=== PATIENT | male | born 1960 | race African-American/Black ===

== ENCOUNTER 2018-12-16 00:41 | Inpatient (IN) | payer MEDICAID ==
[~2018-12-16] VITALS: Ht 185.4 cm; Wt 75.7 kg
[2018-12-16] VITALS (68 sets, daily range): BP systolic 113–166; BP diastolic 61–122
[2018-12-16] MEDS ORDERED: ONDANSETRON HCL 4MG/2ML INJ IV STA (01:04)
[2018-12-16] MEDS ORDERED: SODIUM CHLORIDE 0.9% 1,000 ML IV ONE (01:04)
[2018-12-16] MEDS ORDERED: LORAZEPAM 2MG/ML CPJ IV STA (01:04)
[2018-12-16] MEDS ORDERED: LEVETIRACETAM 500MG PREMIX 100 ML IV ONE (01:15)
[2018-12-16 01:44] LABS: BG BASE EXCESS 0.7 mmol/L (-2.0-2.0); BG CARBOXYHEMOGLOBIN 5.2 % (0.5-1.5); BG DEOXYHEMOGLOBIN 1.2 % (0.0-5.0); BG FRACTION INSPIRED OXYGEN 100; BG HCO3 ACT 31.2 mmol/L (22.0-26.0); BG METHEMOGLOBIN 0.3 % (0.0-1.5); BG OXYGEN SATURATION 98.7 % (92.0-98.5); BG OXYHEMOGLOBIN 93.3 % (94.0-97.0); BG PCO2 82.9 mmHg (35.0-45.0); BG PH 7.193 (7.350-7.450); BG PO2 199.8 mmHg (75.0-100.0); BG SAMPLE SITE RIGHT RADIAL; BG TOTAL HEMOGLOBIN 13.2 g/dL (12.0-18.0); BG VENT MODE MASK - NRB
[2018-12-16] MEDS ORDERED: SUCCINYLCHOLINE CHLORIDE 200MG/10ML IV ONE ×2 (02:00→02:04)
[2018-12-16] MEDS ORDERED: PROPOFOL 10MG/ML 100ML 100 ML IV ONE ×2 (02:00→04:45)
[2018-12-16] MEDS ORDERED: MIDAZOLAM HCL 2 MG/2 ML VIAL IV ONE (02:00)
[2018-12-16 02:03] LABS: BASOPHILS % 0.5 % (0.0-2.0); HEMATOCRIT. 36.6 % (42.0-52.0); HEMOGLOBIN. 12.2 g/dL (14.0-18.0); LYMPHOCYTES % 31.1 % (20.0-50.0); MEAN CORPUSCULAR HEMOGLOBIN 28.3 pg (28.0-32.0); MEAN PLATELET VOLUME 7.6 fl (7.4-10.4); NEUTROPHILS % 58.4 % (40.0-76.0); PLATELET 265 x1000/uL (130-400); RED BLOOD CELL COUNT 4.31 mill/uL (4.7-6.1); RED CELL DISTRIBUTION WIDTH 15.5 % (11.6-14.6)
[2018-12-16 02:06] LABS: CHLORIDE 110 mEq/L (98-107)
[2018-12-16 02:10] LABS: ETHANOL BLOOD < 10 mg/dL
[2018-12-16 02:15] LABS: CREATINE KINASE 165 IU/L (39-308)
[2018-12-16 02:51] LABS: CLARITY URINE CLEAR (CLEAR); COLOR URINE YELLOW (YELLOW); KETONES URINE TRACE (NEGATIVE); LEUKOCYTE ESTERASE URINE NEGATIVE (NEGATIVE); NITRITE URINE NEGATIVE (NEGATIVE); OCCULT BLOOD URINE NEGATIVE (NEGATIVE); PROTEIN URINE 1+ (NEGATIVE); SPECIFIC GRAVITY URINE 1.027 (1.005-1.030); UROBILINOGEN URINE 0.2 E.U./dL (0.2-1.0)
[2018-12-16 03:03] LABS: *AMPHETAMINES SCREEN URINE PRESUMTIVE POSITIVE (NEGATIVE)
[2018-12-16 03:04] LABS: *BARBITURATES SCREEN URINE NEGATIVE (NEGATIVE); *BENZODIAZEPINES SCREEN URINE PRESUMTIVE POSITIVE (NEGATIVE); *COCAINE SCREEN URINE PRESUMTIVE POSITIVE (NEGATIVE); METHADONE URINE SCREEN NEGATIVE (NEGATIVE); OPIATES URINE SCREEN NEGATIVE (NEGATIVE); PHENCYCLIDINE URINE SCREEN PRESUMTIVE POSITIVE (NEGATIVE)
[2018-12-16 03:05] LABS: CANNABINOID URINE SCREEN PRESUMTIVE POSITIVE (NEGATIVE)
[2018-12-16 09:18] LABS: BG BASE EXCESS 1.7 mmol/L (-2.0-2.0); BG CARBOXYHEMOGLOBIN 1.6 % (0.5-1.5); BG DEOXYHEMOGLOBIN 0.8 % (0.0-5.0); BG HCO3 ACT 27.5 mmol/L (22.0-26.0); BG METHEMOGLOBIN 0.2 % (0.0-1.5); BG OXYGEN SATURATION 99.2 % (92.0-98.5); BG OXYHEMOGLOBIN 97.4 % (94.0-97.0); BG PCO2 48.4 mmHg (35.0-45.0); BG PH 7.373 (7.350-7.450); BG PO2 185.4 mmHg (75.0-100.0); BG SAMPLE SITE RIGHT BRACHIAL; BG TIDAL VOLUME(mL) 500 mL; BG VENT MODE VENT - A/C; BG VENT RATE 18 set
[2018-12-16] MEDS ORDERED: ONDANSETRON HCL 4MG/2ML INJ IV PRN (09:30)
[2018-12-16] MEDS: DEXT 5%/0.45% NACL 1000ML 1,000 ML IV SCH (09:43)
[2018-12-16] MEDS: ENOXAPARIN 40MG/0.4ML SYR SUBCUT SCH (09:44)
[2018-12-16] MEDS ORDERED: IPRATROPIUM/ALBUTEROL 0.5-3(2.5)MG/3ML NEB HHN PRN (10:00)
[2018-12-16] MEDS ORDERED: OMEPRAZOLE 20MG CAPSULE EXTENDED RELEASE PO SCH (10:00)
[2018-12-16] MEDS: PROPOFOL 10MG/ML 100ML 100 ML IV PRN ×5 (10:36→23:27)
[2018-12-16] MEDS: LANSOPRAZOLE 30MG DR CAPSULE GT SCH (10:36)
[2018-12-16] MEDS: CEFTRIAXONE 1 G PREMIX 50 ML IV SCH (11:02)
[2018-12-16] MEDS: OXYMETAZOLINE HCL NASAL SPRAY 15ML BOTHNSTRLS SCH ×2 (11:02→21:29)
[2018-12-16] MEDS ORDERED: DILTIAZEM HCL 5MG/ML 5ML VIAL IV SCH (12:00)
[2018-12-16] MEDS: LEVETIRACETAM 500 MG in SODIUM CHLORIDE 0.9% 100 ML IV SCH ×2 (12:20→21:29)
[2018-12-16] MEDS: IPRATROPIUM/ALBUTEROL 0.5-3(2.5)MG/3ML NEB HHN SCH ×2 (14:08→20:55)
[2018-12-16] MEDS: DILTIAZEM HCL 30MG TABLET GT PRN (15:10)
[2018-12-16] MEDS: METOPROLOL TARTRATE 50MG TABLET GT SCH ×2 (17:42→21:29)
[2018-12-17] VITALS (85 sets, daily range): BP systolic 102–155; BP diastolic 32–124
[2018-12-17] MEDS: DEXT 5%/0.45% NACL 1000ML 1,000 ML IV SCH ×2 (00:56→11:40)
[2018-12-17] MEDS: IPRATROPIUM/ALBUTEROL 0.5-3(2.5)MG/3ML NEB HHN SCH ×4 (02:03→20:06)
[2018-12-17] MEDS: PROPOFOL 10MG/ML 100ML 100 ML IV PRN (03:10)
[2018-12-17 05:23] LABS: BASOPHILS % 0.3 % (0.0-2.0); EOSINOPHILS % 1.5 % (0.0-5.0); HEMATOCRIT. 44.7 % (42.0-52.0); HEMOGLOBIN. 14.6 g/dL (14.0-18.0); LYMPHOCYTES % 23.6 % (20.0-50.0); MEAN CORPUSCULAR HEMOGLOBIN 28.1 pg (28.0-32.0); MEAN CORPUSCULAR VOLUME 86.1 fL (80.0-94.0); MEAN PLATELET VOLUME 7.8 fl (7.4-10.4); MONOCYTES % 7.9 % (2.0-8.0); NEUTROPHILS % 66.7 % (40.0-76.0); PLATELET 269 x1000/uL (130-400); RED BLOOD CELL COUNT 5.19 mill/uL (4.7-6.1)
[2018-12-17 05:29] LABS: CHLORIDE 109 mEq/L (98-107)
[2018-12-17] MEDS: DILTIAZEM HCL 30MG TABLET GT PRN ×2 (06:02→14:45)
[2018-12-17] MEDS: LANSOPRAZOLE 30MG DR CAPSULE GT SCH (06:02)
[2018-12-17] MEDS: METOPROLOL TARTRATE 50MG TABLET GT SCH ×2 (08:18→21:21)
[2018-12-17] MEDS: LEVETIRACETAM 500 MG in SODIUM CHLORIDE 0.9% 100 ML IV SCH ×2 (08:18→21:21)
[2018-12-17] MEDS: OXYMETAZOLINE HCL NASAL SPRAY 15ML BOTHNSTRLS SCH (08:18)
[2018-12-17] MEDS: CEFTRIAXONE 1 G PREMIX 50 ML IV SCH (08:18)
[2018-12-17] MEDS: ENOXAPARIN 40MG/0.4ML SYR SUBCUT SCH (08:19)
[2018-12-17] MEDS ORDERED: PROPOFOL 10MG/ML 100ML 100 ML IV PRN (09:30)
[2018-12-17 11:38] LABS: CREATINE KINASE 114 IU/L (39-308)
[2018-12-17] MEDS ORDERED: DILTIAZEM HCL 5MG/ML 5ML VIAL IV PRN (14:30)
[2018-12-17] MEDS: DILTIAZEM HCL 5MG/ML 5ML VIAL IV PRN (18:12)
[2018-12-18] VITALS (41 sets, daily range): BP systolic 90–142; BP diastolic 49–129
[2018-12-18] MEDS: IPRATROPIUM/ALBUTEROL 0.5-3(2.5)MG/3ML NEB HHN SCH ×4 (01:55→20:44)
[2018-12-18] MEDS: DEXT 5%/0.45% NACL 1000ML 1,000 ML IV SCH ×2 (01:59→06:46)
[2018-12-18] MEDS: LANSOPRAZOLE 30MG DR CAPSULE GT SCH (05:57)
[2018-12-18] MEDS: LEVETIRACETAM 500 MG in SODIUM CHLORIDE 0.9% 100 ML IV SCH ×2 (09:49→21:19)
[2018-12-18] MEDS: CEFTRIAXONE 1 G PREMIX 50 ML IV SCH (09:49)
[2018-12-18] MEDS: METOPROLOL TARTRATE 50MG TABLET GT SCH ×2 (09:50→21:19)
[2018-12-18] MEDS: ENOXAPARIN 40MG/0.4ML SYR SUBCUT SCH (09:54)
[2018-12-18] MEDS: DILTIAZEM HCL 5MG/ML 5ML VIAL IV PRN (19:41)
[2018-12-19] VITALS (20 sets, daily range): BP systolic 112–154; BP diastolic 62–92
[2018-12-19] MEDS: IPRATROPIUM/ALBUTEROL 0.5-3(2.5)MG/3ML NEB HHN SCH (02:21)
[2018-12-19] MEDS: LANSOPRAZOLE 30MG DR CAPSULE GT SCH (06:44)
[2018-12-19] MEDS: METOPROLOL TARTRATE 50MG TABLET GT SCH ×2 (08:24→21:26)
[2018-12-19] MEDS: ENOXAPARIN 40MG/0.4ML SYR SUBCUT SCH (08:24)
[2018-12-19] MEDS: LEVETIRACETAM 500 MG in SODIUM CHLORIDE 0.9% 100 ML IV SCH ×2 (08:26→21:52)
[2018-12-19] MEDS: CEFTRIAXONE 1 G PREMIX 50 ML IV SCH (08:26)
[2018-12-19] MEDS: ENOXAPARIN 80MG/0.8ML SYR SUBCUT SCH ×2 (09:00→21:26)
[2018-12-19] MEDS: DILTIAZEM HCL 5MG/ML 5ML VIAL IV PRN (09:04)
[2018-12-19] MEDS: DEXT 5%/0.45% NACL 1000ML 1,000 ML IV SCH (21:25)
[2018-12-20] VITALS: BP 122/87
[2018-12-20 04:00] VITALS: BP 122/78
[2018-12-20] MEDS: DEXT 5%/0.45% NACL 1000ML 1,000 ML IV SCH (06:37)
[2018-12-20 08:00] VITALS: BP 125/81
[2018-12-20] MEDS: ENOXAPARIN 80MG/0.8ML SYR SUBCUT SCH (09:00)
[2018-12-20] MEDS: LEVETIRACETAM 500 MG in SODIUM CHLORIDE 0.9% 100 ML IV SCH (09:37)
[2018-12-20] MEDS: METOPROLOL TARTRATE 50MG TABLET GT SCH (09:37)
== END 2018-12-20 10:35 | disposition left against medical advice (07) | DRG 52 ==
LOC: ER 00:41 → EDBD 02:31 → MICUNO 02:31 → EDBEDREQ 02:33 → EDBEDREQTM 02:33 → EDBEDREQSVC 02:33 → ENRESERV 06:51 → UNDODISIN 12-17 19:40 → 6WST 12-19 16:39
PROVIDERS: ADMIT Hospitalist; ATTEND Hospitalist
PROC: 0BH17EZ Insertion of Endotracheal Airway into Trachea, Via Natural or Artificial Opening (ICD-10-PCS; principal; 2018-12-16)
PROC: 5A1945Z Respiratory Ventilation, 24-96 Consecutive Hours (ICD-10-PCS; 2018-12-16)
DX: G92 Toxic encephalopathy (principal); J96.02 Acute respiratory failure with hypercapnia; E44.0 Moderate protein-calorie malnutrition; R56.9 Unspecified convulsions; E87.2 Acidosis; I48.91 Unspecified atrial fibrillation; F12.10 Cannabis abuse, uncomplicated; F13.10 Sedative, hypnotic or anxiolytic abuse, uncomplicated; Z53.21 Procedure and treatment not carried out due to patient leaving prior to being seen by health care provider; F14.10 Cocaine abuse, uncomplicated; R04.0 Epistaxis; Z68.22 Body mass index [BMI] 22.0-22.9, adult
CPT/HCPCS: 36415; 36600; 71045; 80305; 80307; 80320; 80329; 81003; 82140; 82375; 82550; 82805; 82962; 83605; 83930; 84478; 84484; 92610; 93005; 93970; 94003; 94640; 96374; 97161; 99285; J0330; J0696; J1650; J1953; J2060; J2250; J2405; J2704; J3490; J7030; J7050; J7620; G0480